=== PATIENT | female | born 1965 | race African-American/Black ===

== ENCOUNTER → 2017-03-27 | Outpatient (CLI) | payer OTHER ==
[2014-03-05 22:38] VITALS: BP 143/97
[~2017-03-27] MED LIST: CARV6.25 PO; CHOL100013 PO; CLON0.2T10 PO; FURO-68 PO; NIFE60TA PO; POTA99TA PO
--- NOTE | 2017-03-28 21:05 | CARD ---
APPROVED REPORT EXAM: Two-dimensional and M-mode echocardiogram with Doppler and color Doppler. Other Information Quality : Good INDICATION Hypertension/HCVD RISK FACTORS Obesity 2D DIMENSIONS RVDd3.2 (2.9-3.5cm)Left Atrium(2D)4.1 (1.6-4.0cm) IVSd1.0 (0.7-1.1cm)Aortic Root(2D)2.6 (2.0-3.7cm) LVDd5.2 (3.9-5.9cm)LVOT Diameter2.2 (1.8-2.4cm) PWd0.9 (0.7-1.1cm)LVDs3.7 (2.5-4.0cm) FS (%) 28.5 %SV71.4 ml LVEF(%)55.0 (>50%) Aortic Valve AoV Peak Sung.150.3cm/sAoV VTI30.0cm AO Peak GR.9.0mmHgLVOT Peak Sung.144.2cm/s LVOT VTI 29.52cmAO Mean GR.5mmHg VANCE (VMAX)3.64sw7IMV (VTI)3.64cm2 Mitral Valve MV E Otmsrgde10.3cm/sMV DECEL GELS293de MV A Ssfgxnbe76.4cm/sMV SFR01vy E/A Ratio1.4MVA (PHT)3.52cm2 TDI E/Lateral E'7.3E/Medial E'21.9 Tricuspid Valve TR P. Pvsvxvwo672va/sRAP HIULZBKY3vePr TR Peak Gr.77icEaBZFJ83rmPz Pulmonary Vein S1 Ueekesav90.7cm/sD2 Oqejooah12.2cm/s PVa igmzvlhv726talt LEFT VENTRICLE The left ventricle is normal size. There is normal left ventricular wall thickness. The left ventricu lar systolic function is normal and the ejection fraction is within normal range. The Ejection Fracti on is 55%. There is normal LV segmental wall motion. Transmitral Doppler flow pattern is Grade I-abno rmal relaxation pattern. RIGHT VENTRICLE The right ventricle is normal size. The right ventricular systolic function is normal. ATRIA The left atrium is mildly dilated. The right atrium size is normal. The interatrial septum is intact with no evidence for an atrial septal defect or patent foramen ovale as noted on 2-D or Doppler imagi ng. AORTIC VALVE The aortic valve is normal in structure and function. Doppler and Color Flow revealed no significant aortic regurgitation. There is no significant aortic valvular stenosis. MITRAL VALVE The mitral valve is normal in structure There is no evidence of mitral valve prolapse. There is no mi tral valve stenosis. Doppler and Color-flow revealed mild mitral regurgitation. TRICUSPID VALVE The tricuspid valve is normal in structure Doppler and Color Flow revealed trace tricuspid regurgitat ion. There is no pulmonary hypertension. The PA pressure was estimated at 26 mmHg. There is no tricus pid valve stenosis. PULMONIC VALVE The pulmonary valve is normal in structure Doppler and Color Flow revealed trace pulmonic valvular re gurgitation. There is no pulmonic valvular stenosis. GREAT VESSELS The aortic root is normal in size. The ascending aorta is normal in size. The IVC is normal in size a nd collapses >50% with inspiration. PERICARDIAL EFFUSION There is no evidence of significant pericardial effusion. Critical Notification Critical Value: No <Conclusion> The left ventricular systolic function is normal and the ejection fraction is within normal range. The Ejection Fraction is 55%. Transmitral Doppler flow pattern is Grade I-abnormal relaxation pattern. The left atrium is mildly dilated. The right atrium size is normal. The aortic valve is normal in structure and function. Doppler and Color-flow revealed mild mitral regurgitation. Doppler and Color Flow revealed trace tricuspid regurgitation. There is no pulmonary hypertension. The PA pressure was estimated at 26 mmHg. Doppler and Color Flow revealed trace pulmonic valvular regurgitation. There is no evidence of significant pericardial effusion.
== END | disposition home or self-care (01) ==
LOC: ECHO 13:52
PROVIDERS: ATTEND Internal Medicine Cardiovascular Disease
DX: Z01.810 Encounter for preprocedural cardiovascular examination (principal); I08.1 Rheumatic disorders of both mitral and tricuspid valves; I10 Essential (primary) hypertension; R53.81 Other malaise
CPT/HCPCS: 93306

== ENCOUNTER → 2018-04-18 | Outpatient (CLI) | payer OTHER | END | disposition home or self-care (01) | LOC: MAMMO 08:23 | DX: Z12.31 Encounter for screening mammogram for malignant neoplasm of breast (principal); I13.0 Hypertensive heart and chronic kidney disease with heart failure and stage 1 through stage 4 chronic kidney disease, or unspecified chronic kidney disease; I50.9 Heart failure, unspecified; N18.3 Chronic kidney disease, stage 3 (moderate) | CPT/HCPCS: 77067 ==

== ENCOUNTER → 2018-05-03 | Outpatient (CLI) | payer OTHER | END | disposition home or self-care (01) | LOC: MAMMO 09:59 | DX: R92.8 Other abnormal and inconclusive findings on diagnostic imaging of breast (principal) | CPT/HCPCS: 77065 ==

== ENCOUNTER → 2018-06-20 | Outpatient (CLI) | payer OTHER, MEDICARE ==
[2017-11-15 18:27] VITALS: BP 160/92
[~2018-06-20] MED LIST changes: +DOCU-109 PO; +IBUP-1060 PO; +OXYC-323 PO
--- NOTE | 2018-06-20 13:24 | KCIC ---
Bone mineral density exam History: Postmenopausal Comparison: None Findings: Bone mineral density examination utilizing DEXA was performed. Left hip bone mineral density of 1.079 g/cm2 corresponds with a T score 1.1, Z score 0.8 The bone mineral density of the lumbar spine was 1.304 g/cm2 which corresponds with a T-score of 2.3, Z score 2.5. By World Congress on Osteoporosis criteria, a T score of 0 to-1 SD is considered to be within normal limits. A T score of -1 to -2.5 SD is considered osteopenia. A T score less than -2.5 SD is considered osteoporosis Impression: 1. There is normal bone density of the lumbar spine and the left hip. Electronically signed by: Jerry Ge MD (06/20/2018 1:21 PM) [id number]
== END | disposition home or self-care (01) ==
LOC: KCIC DEXA 12:23
PROVIDERS: ATTEND Internal Medicine
DX: Z13.820 Encounter for screening for osteoporosis (principal); I13.0 Hypertensive heart and chronic kidney disease with heart failure and stage 1 through stage 4 chronic kidney disease, or unspecified chronic kidney disease; I50.9 Heart failure, unspecified; N18.3 Chronic kidney disease, stage 3 (moderate); E87.6 Hypokalemia; Z78.0 Asymptomatic menopausal state
CPT/HCPCS: 77080

== ENCOUNTER → 2019-05-12 | Outpatient (CLI) | payer OTHER ==
[2017-11-15 18:27] VITALS: BP 160/92
[~2019-05-12] MED LIST changes: -OXYC-323 PO; +OXYC1TAB15 PO
--- NOTE | 2019-05-13 13:05 | RAD ---
EXAM: MAMMO MAAME SCREENING BILATERAL HISTORY: routine screening evaluation. COMPARISON: 04/18/2018, 05/03/2018, 01/06/2013 Bilateral CC and MLO views of the breasts were performed. Bilateral breast tomosynthesis was performed in CC and MLO projections. This study was interpreted with the benefit of Computerized Aided Detection (CAD). Breast Density: The breast parenchyma is primarily fatty replaced. Breast parenchyma level density A. FINDINGS: Benign calcifications are present. The parenchymal pattern appears stable. No suspicious masses, microcalcifications or architectural distortion is present to suggest malignancy in either breast. The visualized axillae are unremarkable. IMPRESSION: No mammographic evidence of malignancy. BI-RADS CATEGORY: 2 BENIGN FINDING(S) RECOMMENDED FOLLOW-UP: 12M 12 MONTH FOLLOW-UP Annual screening mammography is recommended, unless clinically indicated sooner based on symptoms or change in physical exam. PQRS compliance statement: Patient information was entered into a reminder system with a target due date for the next mammogram. Mammography is a sensitive method for finding small breast cancers, but it does not detect them all and is not a substitute for careful clinical examination. A negative mammogram does not negate a clinically suspicious finding and should not result in delay in biopsying a clinically suspicious abnormality. "Our facility is accredited by the [employer] Mammography Program." BOD
== END | disposition home or self-care (01) ==
LOC: MAMMO 08:08
PROVIDERS: ATTEND Internal Medicine
DX: Z12.31 Encounter for screening mammogram for malignant neoplasm of breast (principal); N64.89 Other specified disorders of breast
CPT/HCPCS: 77063; 77067

== ENCOUNTER → 2021-12-05 | Outpatient (CLI) | payer OTHER ==
[2017-11-15 18:27] VITALS: BP 160/92
--- NOTE | 2021-12-05 17:42 | RAD ---
Bilateral digital screening 2-D and 3-D (digital breast tomosynthesis) mammogram: Reason for examination: Routine screening. Comparison: Mammograms from 05/12/2019, the 05/03/2018, 04/18/2018. Interpretation was made with the benefit of CAD. FINDINGS: Breast density: Category B. There are scattered areas of fibroglandular density. There is a 7 mm oval circumscribed mass inner left breast, approximately 9:00 position, 2 cm from the nipple, at middle depth. No other evidence of a breast mass is seen. No malignant appearing calcific ations, or architectural distortion is seen. IMPRESSION: 7 mm mass in the inner left breast. Further evaluation with targeted left breast ultrasound is recomm ended. Assessment: BI-RADS 0. Incomplete. Recommendation: Targeted left breast ultrasound. The patient will receive a letter with the results in the mail. Patient information will be entered i nto the mammography reminder system with a target recall date for the next mammogram. A reminder kymberly er will be generated. Electronically signed by: Kylee Huang MD (12/05/2021 5:39 PM) [id number]
== END ==
LOC: MAMMO 13:10
PROVIDERS: ATTEND Internal Medicine
DX: Z12.31 Encounter for screening mammogram for malignant neoplasm of breast (principal)
CPT/HCPCS: 77063; 77067

== ENCOUNTER → 2021-12-09 | Outpatient (CLI) | payer OTHER ==
[2017-11-15 18:27] VITALS: BP 160/92
--- NOTE | 2021-12-09 14:33 | RAD ---
EXAM: Left breast sonogram. HISTORY: 56-year-old female presents for evaluation of a mass within the left breast demonstrated on the mammogram dated 12/05/2021. TECHNIQUE: Sonographic imaging of the left breast targeted to sites of mammographic abnormality was p erformed. COMPARISON: 12/05/2021 and 05/12/2019. FINDINGS: There is a 7 mm benign cluster of cysts at the 12:00 position 6 cm from the nipple. This le raven corresponds with the depth, size and shape of the finding of concern on the recent mammogram at the 9:00 position. The change in o'clock position is due to changes in patient positioning between im aging modalities. No suspicious lesion is seen. IMPRESSION: 1. 7 mm benign cluster of cysts within the left breast at the 12:00 position 6 cm from the nipple, co rresponding with the findings concerning the recent mammogram. 2. No suspicious or sonographic finding. 3. BI-RADS Category 2: Benign finding(s). Annual mammography is recommended. Electronically signed by: Alexandra Maurer MD (12/09/2021 2:31 PM) [id number]
== END ==
LOC: US 13:56
PROVIDERS: ATTEND Internal Medicine
DX: N60.02 Solitary cyst of left breast (principal); N63.20 Unspecified lump in the left breast, unspecified quadrant
CPT/HCPCS: 76641